=== PATIENT | female | born 1965 ===

== ENCOUNTER 2021-11-01 07:22 | Day surgery (SDC) | payer OTHER ==
[~2021-11-01] VITALS: Ht 172.7 cm; Wt 81.6 kg
[~2021-11-01 07:22] MED LIST: COZAAR50 MG PO; LEVOTHYROXINE25 MCG PO
[2021-11-01] MEDS ORDERED: MORGIDOX100 MG PO (12:01)
[2021-11-01] MEDS ORDERED: TRAMADOL HCL E100 MG PO (12:05)
[2021-11-01] MEDS ORDERED: ULTRACET PO (14:02)
== END 2021-11-01 15:45 | disposition home or self-care (01) ==
LOC: CIR.AMB 07:22
PROVIDERS: ATTEND Obstetrics & Gynecology
DX: N84.0 Polyp of corpus uteri (principal); D25.0 Submucous leiomyoma of uterus; Z88.6 Allergy status to analgesic agent; I10 Essential (primary) hypertension; Z99.89 Dependence on other enabling machines and devices; G47.33 Obstructive sleep apnea (adult) (pediatric); E03.9 Hypothyroidism, unspecified